=== PATIENT | female | born 1980 | race Two or more races ===

== ENCOUNTER 2024-06-30 12:19 | Emergency (ER) | payer MEDICAID, OTHER ==
[~2024-06-30] VITALS: Ht 162.6 cm; Wt 50.0 kg
[2024-06-30] MEDS: LORazepam 2MG/ML-1ML VIAL IV ONE ×3 (12:25→15:06)
--- NOTE | 2024-06-30 12:30 | ED.PDOC ---
Altered Mental Status HPI Comments 44-year-old female brought in by EMS with unknown PMHx presents with an ALOC. Per EMS, patient was found unconscious at home, unresponsive to painful stimuli, locked gaze to the right, flacid, and with black tarry emesis coming from mouth. Patient last known well was last night. Patient was found to be in SVT and was shocked 4 times by EMS. Only known change in patients life was recent trip to [place]. Patient is sating at 100% on 15L via Nonrebreather and is hypotensive at 85/49. No other history or medical information available at this time due to patients ALOC. Chief Complaint: ALOC Time Seen by MD: 12:15 Reviewed Notes: Medications, Allergies Information Source: Emergency Med Personnel Mode of Arrival: EMS Severity: Severe, Unresponsive Timing: Other (UNKNOWN ONSET ) Duration: Since onset Prehospital treatment: Accucheck (E5), IVF, Oxygen (15L via Non-Rebreather ) Quality: Decreased Alertness Recent: Vomiting History of: None Past Medical History PAST MEDICAL HISTORY: Unknown, Unobtainable Surgical History: Unknown, Unobtainable STATOR [employer]CTOR History: Unknown, Unobtainable Family History Family History: Unknown, Unobtainable Social History Smoker: Unknown, Unobtainable Alcohol: Unknown, Unobtainable Drugs: Unknown, Unobtainable Lives In: Home Constitutional: denies: chills, diaphoresis, fatigue, fever, malaise, sweats, weakness, others EENTM: denies: blurred vision, double vision, ear bleeding, ear discharge, ear drainage, ear pain, ear ringing, eye pain, eye redness, hearing loss, mouth pain, mouth swelling, nasal discharge, nose bleeding, nose congestion, nose pain , photophobia, tearing, throat pain, throat swelling, voice changes, others Respiratory: denies: cough, hemoptysis, orthopnea, SOB at rest, shortness of breath, SOB with excertion, stridor, wheezing, others Cardiovascular: denies: chest pain, dizzy spells, diaphoresis, Dyspnea on exertion, edema, irregular heart beat, left arm pain, lightheadedness, palpitations, PND, syncope, others Gastrointestinal: denies: abdomen distended, abdominal pain, blood streaked bowels, constipated, diarrhea, dysphagia, difficulty swallowing, hematemesis, melena, nausea, poor appetite, poor fluid intake, rectal bleeding, rectal pain, vomiting, others Genitourinary: denies: abnormal vagina bleeding, burning, dyspareunia, dysuria, flank pain, frequency, hematuria, incontinence, pain, , vagina discharge, urgency, others Neurological: denies: dizziness, fainting, headache, left sided numbness, left sided weakness, numbness, paresthesia, pre-existing deficit, right sided numbness, right sided weakness, seizure, speech problems, tingling, tremors, weakness, others Musculoskeletal: denies: back pain, gout, joint pain, joint swelling, muscle pain, muscle stiffness, neck pain, others Integumetry: denies: bruises, change in color, change in hair/nails, dryness, laceration, lesions, lumps, rash, wounds, others Allergic/Immunocompromised: denies: Difficulty Healing, Frequent Infections, Hives, Itching, others Hematologic/Lymphatic: denies: anemia, blood clots, easy bleeding, easy bruising, swollen glands, others Endocrine: denies: excessive hunger, excessive sweating, excessive thirst, excessive urination, flushing, intolerance to cold, intolerance to heat, unexplained weight gain, unexplained weight loss, others Psychiatric: denies: anxiety, bipolar disorder, depression, hopeless, panic disorder, schizophrenia, sleepless, suicidal, others Unable to Obtain due to: Altered Mental Status, Medical Urgency All Other Systems: Reviewed and Negative Physical Exam General Appearance: Severe Distress, Thin HEENT: Normal ENT Inspection (Except for oral trauma and coffee-ground emesis) Neck: NOT DONE Respiratory: NOT DONE Cardiovascular: NOT DONE Breast Exam: Deferred Gastrointestinal: NOT DONE Genitalia: Deferred Pelvic: Deferred Rectal: Deferred Extremities: NOT DONE Neurologic: Flacid, Other (Patient with fixed gaze to the right. Patient with decorticate posturing. She says the 3. No blink or gag reflexes.) Cerebellar Function: NOT DONE Reflexes: NOT DONE Skin: Dry, Normal Color Lymphatic: NOT DONE Was a procedure done? Was a procedure done?: No Differential Diagnosis (ALOC) Differential Diagnosis: Dehydration, Hypoglycemia, DKA, Encephalopathy, Meningitis, Sepsis, Hypoxemia, Closed Head Injury, CVA, Mass Lesion, SAH, Drug Overdose, ETOH Intoxication, Other X-Ray, Labs, Meds, VS Vital Signs Date Time Temp Pulse Resp B/P (MAP) Pulse Ox O2 Delivery O2 Flow Rate FiO2 06/30/24 12:32 68 23 85/49 (61) 100 X-Ray, Labs, Meds, VS Comment This 44-year-old female presents to emergency room secondary to being found altered. Last known well time was last night. At presentation, the patient had a fixed gaze to the left. She was flaccid with a positive drop test. She did not have a gag or blink reflexes. She was immediately sent to CT scan which showed a l 7 mm subdural bleed without shift. The patient was also noted to have caffeine ground emesis, foul-smelling urine, and glucose erratic food high quit. The patient was given IV fluids, 10 units of insulin, and intubated. The patient will be transferred to [place] via helicopter under the care of Dr. Lim Time of 1ST Reevaluation: 12:45 Reevaluation 1ST: Unchanged Patient Education/Counseling: Diagnosis, Treatment, Prognosis Family Education/Counseling: Diagnosis, Treatment, Prognosis Departure 1 Departure Time of Disposition: 12:51 Impression: Primary Impression: Altered mental status Additional Impressions: Metabolic encephalopathy Subdural bleeding Hyperglycemia UTI (urinary tract infection) Coffee ground emesis Disposition: 02 SHORT TERM HOSPITAL Condition: Critical Critical Care Note Critical Care Time?: Yes (45 min-critical care time only) Critical care comment: Total critical care time: Approximately 36 minutes Due to a high probability of clinically significant, life threatening deterioration, the patient required my highest level of preparedness to intervene emergently and I personally spent this critical care time directly and personally managing the patient. This critical care time included obtaining a history; examining the patient; pulse oximetry; ordering and review of studies; arranging urgent treatment with development of a management plan; evaluation of patient's response to treatment; frequent reassessment; and, discussions with other providers. This critical care time was performed to assess and manage the high probability of imminent, life-threatening deterioration that could result in multi-organ failure. It was exclusive of separately billable procedures and treating other patients and teaching time. Please see MDM section and the rest of the note for further information on patient assessment and treatment. Stability Stability form required: No I personally scribed for JUSTINO GREENE MD ([email or web address]) on 06/30/24 at 12:30. Electronically submitted by Aguila Allen ([email or web address]). JUSTINO GREENE MD Jun 30, 2024 12:30
[2024-06-30] MEDS ORDERED: DEXTROSE (50%) 50ML SYRG IV PRN (12:45)
[2024-06-30] MEDS: levETIRAcetam 1000 mg/100ml 100 ML IV ONE (12:47)
[2024-06-30] MEDS: SODIUM CHLORIDE 0.9% 1,000 ML IVB ONE (12:47)
[2024-06-30] MEDS: SODIUM CHLORIDE 0.9% 1,000 ML IV SCH (12:53)
--- NOTE | 2024-06-30 12:53 | DVH ---
EXAM: CT STROKE CTH HISTORY: stroke COMPARISON: None TECHNIQUE: Axial images of the head were obtained and reformatted in coronal and sagittal planes. All CT scans at this medical facility are performed using dose modulation techniques as appropriate t o a performed exam including the following: Automated exposure control was utilized; adjustment of th e MA and/or KV according to patient size; and use of iterative reconstruction technique. CT Dose: CTDI volume is 50.69 mGy. Dose-length product is 914.18 mGy*cm FINDINGS: There is hyperdense subdural hematoma overlying the left frontal lobe measuring 7 [address] maximum [address]ame ter. There is sulcal effacement in the adjacent left frontal lobe. There is no significant midline sh ift. There is no evidence of a mass. There is no hydrocephalus. The hernandez-white matter differentiation appears maintained. There is partial opacification of the right maxillary, bilateral sphenoid and right ethmoid sinuses. The mastoid air cells are clear. IMPRESSION: 1. Hyperdense subdural hematoma overlying the left frontal lobe measuring 7 mm in maximum diameter. T here is regional mass effect with sulcal effacement in the left frontal lobe. There is no significan t midline shift. Critical findings discussed with Dr. Queen by Dr. Chavez Sahu via phone on 06/30/2024 12:48 PM. HS:Y
[2024-06-30] MEDS: INSULIN LANTUS (GLARGINE) 1 /0.01ml (100units/ml) SC ONE (12:58)
[2024-06-30] MEDS: NOREPINEPHRINE 8 MG/250ML KIT 250 ML IV ONE (13:02)
[2024-06-30 13:17] VITALS: TEMP 88.6
--- NOTE | 2024-06-30 13:22 | DVH ---
CHEST RADIOGRAPH Indication: s/p intubation Technique: Single frontal view of the chest was obtained COMPARISON: None FINDINGS: Lines and Tubes: Endotracheal tube and enteric catheter in satisfactory position. Lungs: Clear Pleura: No effusion. No pneumothorax. Cardiomediastinal contours: Unremarkable Bones: Unremarkable IMPRESSION: Endotracheal tube and enteric catheter in satisfactory position.
[2024-06-30] MEDS ORDERED: NOREPINEPHRINE 8 MG/250ML KIT 250 ML IV SCH (13:30)
[2024-06-30] MEDS: INSULIN DRIP 100 UNIT/100ML 100 ML IV SCH (13:30)
[2024-06-30] MEDS: NOREPINEPHRINE 8 MG/250ML KIT 250 ML IV SCH (13:30)
[2024-06-30 13:35] LABS: Basophils # (auto) 0 10 ^3/uL (0-0.2); Hemoglobin 12.2 g/dL (12.2-16.2)
[2024-06-30 13:36] LABS: Basophils % (auto) 0.3 % (0.0-2.0); Eosinophils # (auto) 0.1 10 ^3/uL (0-0.8); Eosinophils % (auto) 0.5 % (0.0-7.0); Hematocrit 43.4 % (36.0-46.0); Lymphocytes # (auto) 0.7 10 ^3/uL (0.4-5.4); Lymphocytes % (auto) 6.4 % (10.0-50.0); Mean Corpuscular Hemoglobin 32.4 pg (28.0-32.0); Mean Corpuscular Hgb Conc. 28.2 g/dL (32.0-36.0); Mean Corpuscular Volume 114.7 fL (80.0-100.0); Monocytes % (auto) 9.4 % (0.0-12.0); Neutrophils # (auto) 9.2 10 ^3/uL (1.6-8.6); Neutrophils % (auto) 83.4 % (37.0-80.0); Nucleated Red Blood Cells % 0.1 %; Platelet Count (auto) 190 10^3/uL (140-450); Red Blood Cells 3.79 10^6/uL (4.0-5.20); Red Cell Distribution Width 15.8 % (11.8-14.3)
[2024-06-30] MEDS: ACCU-CHEK COMFORT CURVE STRIP VI SCH (13:39)
[2024-06-30 13:46] LABS: Alanine Aminotransferase 13 U/L (7-40); Anion Gap 9.00001 (5-15); Aspartate Aminotransferase 18 U/L (13-40); BUN/Creatinine Ratio 18.2 (10.0-20.0); Bilirubin, Total 0.2 mg/dL (0.2-1.0); Blood Alcohol 4.9 mg/dL (<10); Chloride 107 mmol/L (98-107); Total Protein 4.3 g/dL (5.7-8.2)
[2024-06-30 13:48] LABS: Potassium 3.3 mmol/L (3.5-5.1); Sodium 126 mmol/L (136-145)
[2024-06-30 13:49] LABS: Albumin 2.9 g/dL (3.2-4.8); Alkaline Phosphatase 310 U/L (46-116); Blood Urea Nitrogen 35 mg/dL (9-23); Calcium 8.2 mg/dL (8.7-10.4); Carbon Dioxide < 10 mmol/L (20-31); Magnesium 3.1 mg/dL (1.6-2.6); Phosphorus 6.1 mg/dL (2.4-5.1)
[2024-06-30 13:51] LABS: Amphetamine Screen, Urine Neg (NEGATIVE); Barbiturate Scree,Urine Neg (NEGATIVE); Benzodiazephine Screen, Urine Neg (NEGATIVE); Opiate Scree,Urine Neg (NEGATIVE)
[2024-06-30 13:52] LABS: Cannabinoid Screen, Urine Neg (NEGATIVE); Cocaine Screen, Urine Neg (NEGATIVE); Phencyclidine Screen, Urine Neg (NEGATIVE)
[2024-06-30 13:54] LABS: Glucose 1557 mg/dL (74-106)
[2024-06-30 13:56] LABS: Urine Bacteria FEW /hpf (None Seen); Urine Blood 1+ /uL (Negative); Urine Clarity Clear (Clear); Urine Color Light-Yellow (Yellow); Urine Protein, UAD TRACE (Negative); Urine Specific Gravity 1.019 (1.001-1.035); Urine Squamous Epithelial Cell FEW /hpf (<5); Urine Urobilinogen Normal (Negative); Urine WBC 18 /HPF (0-5); Urine pH 5.5 (5.0-9.0)
[2024-06-30 14:13] LABS: INR 1.09 (0.9-1.15); Prothrombin Time 11.5 sec (9.3-11.8)
[2024-06-30] MEDS: SODIUM BICARB 50mEq/50ml Vial 50 ML in SOD CHL 0.45% 1,000 ML IV ONE (14:15)
[2024-06-30] MEDS: POTASSIUM CHL 20MEQ/100ML 100 ML IV SCH (14:15)
[2024-06-30 14:24] LABS: Partial Thromboplastin Time 91.7 SEC (24.5-34.5)
[2024-06-30] MEDS: SODIUM CHLORIDE 0.9% 1,650 ML IV ONE (14:30)
[2024-06-30] MEDS: TRANEXAMIC ACID 10 ML ONE (14:30)
[2024-06-30] MEDS: TRANEXAMIC ACID 1,000 MG in SODIUM CHL 0.9% 100 ML IV ONE (14:30)
[2024-06-30 14:34] VITALS: PULSE 75; RESP 18; O2SAT 97
[2024-06-30 14:38] VITALS: PULSE 76; RESP 19; O2SAT 100
[2024-06-30] MEDS: SODIUM BICARB 8.4% 50Meq/50ml SYR Vial IV ONE ×3 (15:04)
[2024-06-30] MEDS: LORazepam 2MG/ML-1ML VIAL ONE ×2 (15:05→15:06)
[2024-06-30] MEDS: VASOPRESSIN 20 UNIT/ML ONE (15:05)
[2024-06-30 15:09] VITALS: BP 61/39
[2024-06-30] MEDS: VASOPRESSIN 40 UNITS in D5W 5% 198 ML IV SCH (15:09)
[2024-06-30] MEDS: LORazepam MDV 2MG/ML 10 ML IV ONE (15:11)
[2024-06-30] MEDS: PROPOFOL 10 MG/ML 20 ML IV ONE ×2 (15:13→15:32)
[2024-06-30] MEDS: PROPOFOL 0 ML IV ONE (15:14)
[2024-06-30] MEDS ORDERED: PROPOFOL 100 ML IV SCH (15:15)
[2024-06-30] MEDS: PROPOFOL 100 ML IV ONE (15:29)
[2024-06-30] MEDS ORDERED: MANNITOL 20% SOLN 100 gm/500ml 500 ML IV ONE (15:45)
[2024-06-30] MEDS ORDERED: SODIUM CHL 3% HYPERTONIC 500 ML BAG IN ONE (15:45)
[2024-06-30] MEDS ORDERED: SODIUM CHL 3% 500 ML IV ONE (15:45)
[2024-06-30] MEDS ORDERED: SODIUM CHLORIDE 0.9% 1,000 ML IV SCH ×2 (16:45→18:45)
[2024-07-01] MEDS ORDERED: INSULIN LANTUS (GLARGINE) 1 /0.01ml (100units/ml) SC SCH (10:00)
--- NOTE | 2024-07-03 13:50 | ECG ---
[facility] Test Date: 2024-06-30 Test Time: 12:30:43 Pat Name: KAROLINA MELO Department: ED Room: Gender: F Service Rig Operator: ED : [id number] Requested By: JUSTINO GREENE Order Number: [id number] Reading MD: Neto Mayes Measurements Intervals [place] Rate: 67 P: 81 MS: 195 QRS: 95 QRSD: 136 T: 37 QT: 522 QTc: 551 Interpretive Statements Sinus rhythm Probable left atrial enlargement Nonspecific intraventricular conduction delay Borderline T abnormalities, inferior leads ST elev, probable normal early repol pattern Electronically Signed On 07-06-2024 21:18:50 PST by Neto Mayes Please click the below link to view image of tracing.
== END 2024-06-30 14:40 | disposition short-term general hospital (02) ==
LOC: ER 12:19
DX: R41.82 Altered mental status, unspecified (principal); G93.41 Metabolic encephalopathy; I62.00 Nontraumatic subdural hemorrhage, unspecified; N39.0 Urinary tract infection, site not specified; F17.200 Nicotine dependence, unspecified, uncomplicated; R73.9 Hyperglycemia, unspecified; I95.9 Hypotension, unspecified; Z46.82 Encounter for fitting and adjustment of non-vascular catheter; Z79.899 Other long term (current) drug therapy
CPT/HCPCS: 31500; 36415; 36600; 70450; 71045; 80053; 80307; 80320; 81001; 82010; 82805; 82947; 83605; 83735; 83930; 84100; 84484; 85025; 85379; 85610; 85730; 87040; 87070; 87077; 87086; 87186; 87205; 93005; 96365; 96366; 96368; 96372; 96375; 96376; 99291; J1815; J1953; J2060; J2704; J7060; 82962